=== PATIENT | female | born 1960 | race Caucasian/White ===

== ENCOUNTER 2020-07-29 12:05 | Outpatient (CLI) | payer OTHER, SELFPAY ==
--- NOTE | ~2020-07-29 | XR_ITS ---
EXAMINATION: XR chest 2V EXAM DATE: 07/29/2020 12:34 INDICATION: Mild intermittent asthma. TECHNIQUE: Frontal and lateral projections of the chest obtained and reviewed. Comparison is made to prior examination from 07/17/2016. FINDINGS: The lungs are clear. There are no pleural effusions. The cardiomediastinal silhouette is within normal limits. There is no pneumothorax suspected. The bones and soft tissues are unremarkab le. IMPRESSION: No acute cardiopulmonary findings. Reviewed, dictated and finalized at location A. KROOM CHIEF
[2020-07-29 13:06] LABS: Basophils Percent Auto 0.5 % (0.2-1.2); Eosinophils Absolute Auto 0.1 K/mm3 (0-0.3); Eosinophils Percent Auto 1.8 % (0-4.4); Hematocrit 42.5 % (37.0-47.0); Hemoglobin 14.4 g/dL (12.0-15.0); Immature Granulocyte Absolute 0.02 K/mm3 (0.00-0.031); Immature Granulocyte Percent A 0.5 % (0-0.5); Lymphocytes Absolute Auto 1.64 K/mm3 (0.9-3.2); Lymphocytes Percent Auto 42.2 % (18.3-44.2); Mean Corpuscular HGB Conc 33.9 g/dl (32-36); Mean Corpuscular Hemoglobin 30.4 pg (26-34); Mean Corpuscular Volume 89.7 fl (80-100); Mean Platelet Volume 8.8 fl (7.4-10.4); Monocytes Absolute Auto 0.4 K/mm3 (0.1-0.6); Monocytes Percent Auto 9.5 % (2.6-8.5); Neutrophils Absolute Auto 1.8 K/mm3 (1.3-6.7); Neutrophils Percent Auto 45.5 % (45.5-73.1); Platelet Count Result 220 k/mm3 (150-375); Red Blood Count 4.74 M/mm3 (4.2-5.4); Red Cell Distribution Width 12.6 % (11.5-14.5); White Blood Count 3.9 K/mm3 (4.5-10.0)
[2020-07-29 13:18] LABS: Alanine Aminotransferase 22 U/L (4-35); Albumin Level 4.6 g/dL (3.5-5.1); Alkaline Phosphatase 55 U/L (38-126); Anion Gap 7 mmol/L (8-16); Aspartate Amino Transferase 30 U/L (14-36); Bilirubin,Total 0.6 mg/dL (0.2-1.3); Blood Urea Nitrogen 15 mg/dL (7-17); Calcium 9.5 mg/dL (8.4-10.2); Carbon Dioxide 34 mmol/L (22-30); Chloride 97 mmol/L (98-107); Cholesterol 167 mg/dL (0-200); Estimated Glomerular Filt Rate > 60; Glucose 108 mg/dL (65-105); HDL Direct 53 mg/dL; Potassium 3.3 mmol/L (3.4-5.0); Sodium 138 mmol/L (137-145); Triglycerides 142 mg/dL (<150)
[2020-07-29 13:27] LABS: NT Pro B Type Natriuretic Pept 22 PG/ML (5-100)
[2020-07-29 13:29] LABS: LDL Cholesterol Direct 87 mg/dL
[2020-07-29 13:48] LABS: Thyroid Stimulating Hormone 0.608 uIU/mL (0.465-4.680)
--- NOTE | 2020-07-29 13:49 | ECG_ITS ---
Measurements Intervals [place] Rate: 59 P: 51 MO: 163 QRS: -24 QRSD: 94 T: 30 QT: 433 QTc: 430 Interpretive Statements SINUS BRADYCARDIA INCOMPLETE RIGHT BUNDLE BRANCH BLOCK NONSPECIFIC ST & T-WAVE ABNORMALITY- DIFFUSE LEADS BASELINE WANDER- I, II, III, AVR, AVL, AVF, V4 BORDERLINE ECG Electronically Signed On 07-29-2020 14:23:12 MATERIALS HANDLING COORDINATOR by Jovanni Person D.O.
[2020-08-03 13:26] LABS: Vitamin D 1,25 (OH)2 Total 57 pg/mL (18-72); Vitamin D2 1,25 (OH)2 <8 pg/mL; Vitamin D3 1,25 (OH)2 57 pg/mL
== END 2020-07-29 12:06 | disposition home or self-care (01) ==
DX: J45.20 Mild intermittent asthma, uncomplicated (principal); I10 Essential (primary) hypertension; E78.5 Hyperlipidemia, unspecified; I49.9 Cardiac arrhythmia, unspecified; R60.0 Localized edema; I45.10 Unspecified right bundle-branch block
CPT/HCPCS: 36415; 71046; 80053; 80061; 82652; 83880; 84439; 84443; 85025; 93005

== ENCOUNTER 2020-09-27 09:02 | Outpatient (CLI) | payer OTHER, SELFPAY ==
--- NOTE | ~2020-09-27 | MM_ITS ---
EXAMINATION: MM screening [facility] BI w tamara HISTORY: Screening mammogram TECHNIQUE: Craniocaudal and mediolateral oblique 3-D tomosynthesis images were obtained and synthetic 2-D images were generated. CAD analysis was submitted and interpreted. COMPARISON: 09/19/2019, 09/14/2018, 09/03/2017 BREAST PARENCHYMAL COMPOSITION: There are scattered areas of fibroglandular density. FINDINGS: There is no evidence of suspicious mass, calcification, or architectural distortion to sugg est malignancy in either breast. There has been no suspicious interval change. IMPRESSION: 1. No mammographic evidence of malignancy. 2. Recommend routine screening mammography in one year. BI-RADS Category 1: Negative Reviewed, dictated and finalized at location A. IAL WARFARE OPERATOR
== END 2020-09-27 09:03 | disposition home or self-care (01) ==
PROVIDERS: Visit Provider Obstetrics & Gynecology
DX: Z12.31 Encounter for screening mammogram for malignant neoplasm of breast (principal)
CPT/HCPCS: 77063; 77067

== ENCOUNTER 2021-03-12 20:34 | Emergency (ER) | payer OTHER, SELFPAY ==
--- NOTE | ~2021-03-12 | CT_ITS ---
EXAMINATION: CT abdomen pelvis w con DATE: 03/12/2021 22:08 INDICATION: Abdominal pain. TECHNIQUE: Computed tomography (CT) of the abdomen and pelvis was performed with 100 mL Omnipaque 350 intravenous contrast. Automated exposure control and iterative reconstruction technique were employe d. The dose-length product was 335.33 mGy-cm. COMPARISON: CT abdomen 06/11/2006 FINDINGS: The visualized portions of the lung bases demonstrate mild atelectasis. No pleural effusion . The heart size is normal. No pericardial effusion. There is a 4 mm cyst in the liver. The gallbladd er, spleen, pancreas, and adrenal glands are normal. There are cysts in the kidneys measuring up to 2 .1 cm in the left. There is diverticulosis of the colon without evidence of diverticulitis. There are no dilated loops of bowel. The appendix is normal. There are no pathologically enlarged lymph nodes. There is no free intraperitoneal fluid. There is moderate lumbar spondylosis. IMPRESSION: 1. No etiology for the patient's symptoms. Reviewed, dictated and finalized at location A.
[2021-03-12 20:31] VITALS: BP 144/114; PULSE 72; RESP 12; O2SAT 95
--- NOTE | 2021-03-12 20:36 | ECG_ITS ---
Measurements Intervals [place] Rate: 74 P: 47 CO: 158 QRS: -18 QRSD: 94 T: 32 QT: 412 QTc: 458 Interpretive Statements SINUS RHYTHM EARLY PRECORDIAL R/S TRANSITION T WAVE ABNORMALITY IN ANTERIOR LEADS- CONSIDER ISCHEMIA BASELINE ARTIFACT- II, III, AVR, AVF, V2-V6 ABNORMAL ECG Electronically Signed On 03-12-2021 21:42:19 CDT by Jovanni Person D.O.
[2021-03-12 21:08] LABS: Basophils Absolute Auto 0.1 K/mm3 (0.0-0.1); Basophils Percent Auto 0.7 % (0.2-1.2); Eosinophils Absolute Auto 0.2 K/mm3 (0-0.3); Eosinophils Percent Auto 3.4 % (0-4.4); Hematocrit 39.5 % (37.0-47.0); Hemoglobin 12.8 g/dL (12.0-15.0); Immature Granulocyte Absolute 0.03 K/mm3 (0.00-0.031); Immature Granulocyte Percent A 0.4 % (0-0.5); Lymphocytes Absolute Auto 3.02 K/mm3 (0.9-3.2); Lymphocytes Percent Auto 42.4 % (18.3-44.2); Mean Corpuscular HGB Conc 32.4 g/dl (32-36); Mean Corpuscular Volume 92.7 fl (80-100); Mean Platelet Volume 8.8 fl (7.4-10.4); Monocytes Absolute Auto 0.4 K/mm3 (0.1-0.6); Monocytes Percent Auto 5.9 % (2.6-8.5); Neutrophils Absolute Auto 3.4 K/mm3 (1.3-6.7); Neutrophils Percent Auto 47.2 % (45.5-73.1); Platelet Count Result 242 k/mm3 (150-375); Red Blood Count 4.26 M/mm3 (4.2-5.4); Red Cell Distribution Width 13.2 % (11.5-14.5); White Blood Count 7.1 K/mm3 (4.5-10.0)
[2021-03-12 21:17] LABS: Alanine Aminotransferase 19 U/L (4-35); Albumin Level 4.2 g/dL (3.5-5.1); Alkaline Phosphatase 39 U/L (38-126); Anion Gap 12 mmol/L (8-16); Aspartate Amino Transferase 33 U/L (14-36); Bilirubin,Total 0.6 mg/dL (0.2-1.3); Blood Urea Nitrogen 36 mg/dL (7-17); Calcium 10.1 mg/dL (8.4-10.2); Carbon Dioxide 26 mmol/L (22-30); Chloride 101 mmol/L (98-107); Estimated CRCL calculation 73 ml/min; Estimated Glomerular Filt Rate > 60; Glucose 166 mg/dL (65-105); Lipase 123 U/L (23-300); Potassium 3.2 mmol/L (3.4-5.0); Sodium 139 mmol/L (137-145)
[2021-03-12 21:28] LABS: Troponin I < 0.012 ng/mL (0.000-0.034)
[2021-03-12 21:30] VITALS: BP 100/64; PULSE 73; RESP 17; O2SAT 98
--- NOTE | 2021-03-12 22:28 | ED.SYNCOPE ---
HPI - Syncope General Chief Complaint: Syncope Stated Complaint: Dizzy Time Seen by Provider: 03/12/21 20:36 Source: patient Mode of arrival: EMS Limitations: no limitations History of Present Illness HPI narrative: 60-year-old with a history of hypertension, allergies, osteoarthritis here with complaints of near syncopal episode. Patient states that she had severe abdominal cramps followed by nausea. Patient states that she was about to go to the toilet had a near syncopal episode. Family called 911 and she was later brought here to the ER. Upon arrival to the ER patient states that her abdomen pain completely resolved. She denies any chest pain, shortness of breath. No history of blood in the stool or black-colored stool. Related Data Allergies Allergy/AdvReac Type Severity Reaction Status Date / Time lisinopril Allergy Unknown Dry Mouth Verified 03/12/21 20:38 methyldopa Allergy Unknown Other Verified 03/12/21 20:38 Review of Systems Review of Systems: All systems reviewed & are unremarkable except as noted in HPI and below Constitutional: Constitutional: Reports no additional constitutional complaints Eyes: Eyes: Reports no additional eye complaints ENT: Reports system reviewed and no additional complaints, except as documented Cardiovascular: Cardiovascular: Reports as per HPI Respiratory: Respiratory: Reports no additional respiratory complaints Gastrointestinal: Gastrointestinal: Reports as per HPI Musculoskeletal: Musculoskeletal: Reports no additional musculoskeletal complaints Neurologic: Reports system reviewed and no additional complaints, except as documented PMFSH Social History Social History Gender identity (if verbalized by the patient): Female Exam Narrative: Exam Narrative: GENERAL: Well-appearing, well-nourished, and in no acute distress. HEAD: Normocephalic, atraumatic. EYES: PERRLA and EOMI. ENT: Nares clear, no rhinorrhea or epistaxis. Mucous membranes moist. NECK: Supple. CHEST: Clear to auscultation. No respiratory distress. HEART: Regular rate and rhythm. No murmur heard. Normal peripheral pulses. ABDOMEN: Soft, nontender, nondistended, normal active bowel sounds. EXTREMITIES: Normal range of motion. No edema. SKIN: Warm, dry, no rash. NEURO: No focal deficits. Alert and oriented x3. PSYCH: Normal mood and affect. Course Course Emergency Course: Patient had no further episodes of chest pain or shortness of breath or abdominal pain while she was here in the ER. I have reviewed lab work, CT findings with the patient and her . She does feel comfortable going home. Vital Signs Vital signs: Vital Signs Pulse Rate 72 03/12/21 20:31 Respiratory Rate 12 03/12/21 20:31 Blood Pressure 144/114 H 03/12/21 20:31 Pulse Oximetry 95 03/12/21 20:31 Pulse Rate 73 03/12/21 21:30 Respiratory Rate 17 03/12/21 21:30 Blood Pressure 100/64 03/12/21 21:30 Pulse Oximetry 98 03/12/21 21:30 MDM - Syncope Differential Diagnosis Differential diagnosis: Likely vasovagal syncope Lab Data Result diagrams: 03/12/21 20:58 03/12/21 20:58 Labs: Lab Results 03/12/21 03/12/21 Range/Units 20:58 20:58 WBC 7.1 (4.5-10.0) K/mm3 RBC 4.26 (4.2-5.4) M/mm3 Hgb 12.8 (12.0-15.0) g/dL Hct 39.5 (37.0-47.0) % MCV 92.7 (80-100) fl MCH 30.0 (26-34) pg MCHC 32.4 (32-36) g/dl RDW 13.2 (11.5-14.5) % Plt Count 242 (150-375) k/mm3 MPV 8.8 (7.4-10.4) fl Immature Gran % (Auto) 0.4 (0-0.5) % Neut % (Auto) 47.2 (45.5-73.1) % Lymph % (Auto) 42.4 (18.3-44.2) % [place] % (Auto) 5.9 (2.6-8.5) % Eos % (Auto) 3.4 (0-4.4) % Baso % (Auto) 0.7 (0.2-1.2) % Lymph # (Auto) 3.02 (0.9-3.2) K/mm3 [place] # (Auto) 0.4 (0.1-0.6) K/mm3 Eos # (Auto) 0.2 (0-0.3) K/mm3 Baso # (Auto) 0.1 (0.0-0.1) K/mm3 Abs Immat Gran (auto) 0.03 (0.00-0.03
[2021-03-12 22:51] VITALS: BP 120/70; PULSE 81; RESP 14; O2SAT 100
== END 2021-03-12 22:51 | disposition home or self-care (01) ==
PROVIDERS: Emergency Provider Family Medicine
DX: R55 Syncope and collapse (principal); I10 Essential (primary) hypertension; M19.90 Unspecified osteoarthritis, unspecified site
CPT/HCPCS: 36415; 74177; 80053; 83690; 84484; 85025; 93005; 99284; Q9967

== ENCOUNTER 2021-09-04 10:32 | Outpatient (CLI) | payer OTHER, SELFPAY ==
--- NOTE | ~2021-09-04 | MR_ITS ---
EXAMINATION: MR brain/brain stem wo/w con DATE: 09/04/2021 11:47 INDICATION: Worsening headaches. TECHNIQUE: Magnetic resonance imaging (MRI) of the brain and brainstem was performed without and with 14 mL MultiHance intravenous contrast. Sequences included sagittal and axial T1-weighted FSE, axial diffusion-weighted FS EPI, axial T2*-weighted GRE, axial T2-weighted FLAIR Propeller, and axial T2-we ighted Propeller. Postcontrast sequences included axial, sagittal, and coronal T1-weighted FSE. Appar ent diffusion coefficient (ADC) maps were created. COMPARISON: Brain MRI 12/27/2009 FINDINGS: There is plagiocephaly with relative flattening of the right posterolateral skull. Platybas ia is noted. The cerebellar tonsils extend 9 mm inferior to foramen magnum, consistent with Chiari 1 malformation. There are scattered areas of nonspecific increased T2-weighted signal intensity in the cerebral white matter, which is within normal limits for the patient's age. There is no intracranial hemorrhage, acute infarction, or abnormal intracranial mass lesion. The ventricles are normal in size . There is mild mucosal thickening in the paranasal sinuses. There are changes of ethmoidectomies. Th e orbits are normal. The mastoid air cells are normal. IMPRESSION: 1. Chiari 1 malformation. 2. Plagiocephaly and platybasia. Reviewed, dictated and finalized at location A. OGRAPHY SPOTTER
[2021-09-04 11:20] LABS: Estimated Glomerular Filt Rate > 60
== END 2021-09-04 10:33 | disposition home or self-care (01) ==
LOC: ANHIMG 10:41
PROVIDERS: PCP Nurse Practitioner; Visit Provider Internal Medicine
DX: I77.810 Thoracic aortic ectasia (principal); G93.5 Compression of brain
CPT/HCPCS: 70553; A9577

== ENCOUNTER 2022-01-16 08:41 | Outpatient (CLI) | payer OTHER, SELFPAY ==
--- NOTE | ~2022-01-16 | MM_ITS ---
EXAMINATION: MM screening [facility] BI w tamara HISTORY: Screening TECHNIQUE: Craniocaudal and mediolateral oblique 3-D tomosynthesis images were obtained and synthetic 2-D images were generated. CAD analysis was submitted and interpreted. COMPARISON: Comparison to multiple prior studies sequentially, with oldest reviewed study dated 12/2014. BREAST PARENCHYMAL COMPOSITION: There are scattered areas of fibroglandular density. FINDINGS: There is no evidence of suspicious mass, calcification, or architectural distortion to sugg est malignancy in either breast. There has been no suspicious interval change. IMPRESSION: 1. No mammographic evidence of malignancy. 2. Recommend routine screening mammography in one year. BI-RADS Category 1: Negative Reviewed, dictated and finalized at location A.
== END 2022-01-16 08:42 | disposition home or self-care (01) ==
LOC: ANHIMG 08:46
PROVIDERS: PCP Nurse Practitioner; Visit Provider Obstetrics & Gynecology
DX: Z12.31 Encounter for screening mammogram for malignant neoplasm of breast (principal)
CPT/HCPCS: 77063; 77067

== ENCOUNTER 2022-09-13 15:03 | Emergency (ER) | payer OTHER, SELFPAY ==
[2022-09-13 15:07] VITALS: BP 187/99; PULSE 81; RESP 20; TEMP 36.8; O2SAT 99
[2022-09-13 16:54] VITALS: BP 191/92; PULSE 66; RESP 18; O2SAT 100
[2022-09-13 17:23] LABS: Basophils Percent Auto 0.6 % (0.2-1.2); Eosinophils Absolute Auto 0.1 K/mm3 (0-0.3); Hematocrit 41.7 % (37.0-47.0); Hemoglobin 13.8 g/dL (12.0-15.0); Immature Granulocyte Absolute 0.04 K/mm3 (0.00-0.031); Immature Granulocyte Percent A 0.6 % (0-0.5); Lymphocytes Absolute Auto 1.52 K/mm3 (0.9-3.2); Lymphocytes Percent Auto 23.8 % (18.3-44.2); Mean Corpuscular HGB Conc 33.1 g/dl (32-36); Mean Corpuscular Hemoglobin 31.7 pg (26-34); Mean Corpuscular Volume 95.9 fl (80-100); Mean Platelet Volume 8.7 fl (7.4-10.4); Monocytes Absolute Auto 0.6 K/mm3 (0.1-0.6); Monocytes Percent Auto 9.1 % (2.6-8.5); Neutrophils Absolute Auto 4.1 K/mm3 (1.3-6.7); Neutrophils Percent Auto 63.9 % (45.5-73.1); Platelet Count Result 301 k/mm3 (150-375); Red Blood Count 4.35 M/mm3 (4.2-5.4); White Blood Count 6.4 K/mm3 (4.5-10.0)
[2022-09-13 17:24] LABS: Alanine Aminotransferase 34 U/L (6-35); Albumin Level 4.2 g/dL (3.5-5.1); Alkaline Phosphatase 45 U/L (38-126); Anion Gap 3 mmol/L (8-16); Aspartate Amino Transferase 27 U/L (14-36); Bilirubin,Total 0.8 mg/dL (0.2-1.3); Blood Urea Nitrogen 12 mg/dL (7-17); Calcium 9.1 mg/dL (8.4-10.2); Carbon Dioxide 32 mmol/L (22-30); Chloride 97 mmol/L (98-107); Estimated CRCL calculation 83 ml/min; Estimated Glomerular Filt Rate > 60; Glucose 109 mg/dL (65-110); Lipase 115 U/L (23-300); Potassium 3.3 mmol/L (3.4-5.0); Sodium 132 mmol/L (137-145)
[2022-09-13] MEDS: ONDANSETRON INJ 4 MG/2 ML VIAL IV PUSH (17:45)
[2022-09-13] MEDS: KETOROLAC 30 MG/ML VIAL (*BKC) IV PUSH (17:45)
[2022-09-13] MEDS: SODIUM CHLORIDE 0.9% IV 1,000 ML 999 ML IV CONT (17:45)
[2022-09-13 18:50] LABS: Add Urine Microscopic? YES; Appearance Urine Clear (Clear); Bilirubin Urine Negative (Negative); Blood Urine Trace-Intact (Negative); Color Urine Light Yellow (Yellow); Glucose Urine UA Negative (Negative); Ketones Urine Negative (Negative); Leukocyte Esterase Ur Negative LEU/UL (Negative); Nitrate Urine Negative (Negative); Protein Urine Negative (Negative); Urobilinogen Urine 0.2 mg/dL (<2.0); pH Urine 7.5 (5.0-9.0)
--- NOTE | 2022-09-13 19:04 | ED.NAVMDI ---
HPI - Nausea/Vomiting/Diarrhea General Chief complaint: Nausea/Vomiting/Diarrhea Stated complaint: vomiting, dizzy Time Seen by Provider: 09/13/22 17:04 History of Present Illness HPI Narrative: 62-year-old female presents to the emergency room with a history of hypertension, Chiari malformation, chronic neck pain and sudden onset of vomiting and diarrhea that began last night. Patient states she was seen at her neurosurgeon 4 days ago for worsening neck pain. Reports ibuprofen has been alleviating her symptoms. Patient states that this morning she suddenly began experiencing nonbloody, nonbilious vomiting x4 episodes. Also reports several episodes of diarrhea. Denies any abdominal pain. Related Data Allergies Allergy/AdvReac Type Severity Reaction Status Date / Time lisinopril Allergy Unknown Dry Mouth Verified 09/13/22 16:53 methyldopa Allergy Unknown Other Verified 09/13/22 16:53 Review of Systems Review of Systems: CONSTITUTIONAL: Denies fever, chills, or sweats. EYES: Denies visual changes, redness, or discharge. ENT: Denies rhinorrhea, congestion, sore throat, or otalgia. CARDIOVASCULAR: Denies chest pain, palpitations, or edema. RESPIRATORY: Denies cough or dyspnea. GASTROINTESTINAL: Reports vomiting and diarrhea GENITOURINARY: Denies dysuria or hematuria. SKIN: Denies rash or itching. MUSCULOSKELETAL: Reports neck pain NEUROLOGIC: Denies headache PSYCHIATRIC: Denies anxiety or depression. PMFSH Social History Social History Gender identity (if verbalized by the patient): Female Exam Narrative: GENERAL: Well-appearing, well-nourished, no physical limitations, and in no acute distress. HEAD: Normocephalic, atraumatic. EYES: Conjunctivae normal, PERRLA and EOMI. NECK: Supple. CHEST: Clear to auscultation. No respiratory distress. No wheezes rales or rhonchi. HEART: Regular rate and rhythm. No murmur heard. Normal peripheral pulses. ABDOMEN: Soft, nontender, nondistended, normal active bowel sounds. : Normal external male/female exam. BACK: No midline cervical tenderness, step-offs, bony abnormality; FROM EXTREMITIES: Normal range of motion. No edema. No clubbing or cyanosis SKIN: Warm, dry, no rash. No noted wounds NEURO: No focal deficits. Alert and oriented x3. MAEW. CN's II-XI intact bilaterally, normal gait PSYCH: Cooperative. Normal mood and affect. Course Vital Signs Vital signs: Vital Signs Temperature 36.8 C 09/13/22 15:07 Pulse Rate 81 09/13/22 15:07 Respiratory Rate 20 09/13/22 15:07 Blood Pressure 187/99 H 09/13/22 15:07 Pulse Oximetry 99 09/13/22 15:07 Oxygen Delivery Room Air 09/13/22 15:07 Temperature 36.8 C 09/13/22 15:07 Pulse Rate 66 09/13/22 16:54 Respiratory Rate 18 09/13/22 16:54 Blood Pressure 191/92 H 09/13/22 16:54 Pulse Oximetry 100 09/13/22 16:54 Oxygen Delivery Room Air 09/13/22 15:07 MDM - Nausea/Vomiting/Diarrhea Lab Data 09/13/22 17:05 09/13/22 17:05 Labs: Lab Results 09/13/22 09/13/22 09/13/22 Range/Units 17:05 17:05 18:43 WBC 6.4 (4.5-10.0) K/mm3 RBC 4.35 (4.2-5.4) M/mm3 Hgb 13.8 (12.0-15.0) g/dL Hct 41.7 (37.0-47.0) % MCV 95.9 (80-100) fl MCH 31.7 (26-34) pg MCHC 33.1 (32-36) g/dl RDW 13.0 (11.5-14.5) % Plt Count 301 (150-375) k/mm3 MPV 8.7 (7.4-10.4) fl Immature Gran % (Auto) 0.6 H (0-0.5) % Neut % (Auto) 63.9 (45.5-73.1) % Lymph % (Auto) 23.8 (18.3-44.2) % [place] % (Auto) 9.1 H (2.6-8.5) % Eos % (Auto) 2.0 (0-4.4) % Baso % (Auto) 0.6 (0.2-1.2) % Lymph # (Auto) 1.52 (0.9-3.2) K/mm3 [place] # (Auto) 0.6 (0.1-0.6) K/mm3 Eos # (Auto) 0.1 (0-0.3) K/mm3 Baso # (Auto) 0.0 (0.0-0.1) K/mm3 Abs Immat Gran (auto) 0.04 H (0.00-0.031) K/mm3 Absolute Neuts (auto) 4.1 (1.3-6.7) K/mm3 Absolute Nucleated RBC 0.0 (0.0-0.012) K/m
[2022-09-13 19:10] LABS: Amorphous Sediment Urine Few; Bacteria Urine Trace /hpf; Mucus Urine Rare /lpf; WBC Urine 0-3 /hpf
[2022-09-13 19:19] VITALS: BP 134/80; PULSE 74; RESP 18; O2SAT 99
[2022-09-13 20:17] VITALS: BP 145/69; PULSE 67; RESP 18; O2SAT 98
== END 2022-09-13 20:20 | disposition home or self-care (01) ==
PROVIDERS: Emergency Medicine; Emergency Provider Nurse Practitioner Family; PCP Nurse Practitioner
DX: K52.9 Noninfective gastroenteritis and colitis, unspecified (principal); M54.2 Cervicalgia
CPT/HCPCS: 36415; 80053; 81001; 83690; 85025; 96361; 96374; 96375; 99284; J1885; J2405; J7030

== ENCOUNTER 2023-05-28 08:48 | Outpatient (CLI) | payer OTHER, SELFPAY ==
--- NOTE | ~2023-05-28 | MM_ITS ---
EXAMINATION: MM screening [place] BI w tamara HISTORY: Screening mammogram TECHNIQUE: Craniocaudal and mediolateral oblique 3-D tomosynthesis images were obtained and synthetic 2-D images were generated. CAD analysis was submitted and interpreted. COMPARISON: January 16, 2022, September 27, 2020, September 19, 2019 bilateral screening mammogram examinat ions BREAST PARENCHYMAL COMPOSITION: There are scattered areas of fibroglandular density. FINDINGS: There is no evidence of suspicious mass, calcification, or architectural distortion to sugg est malignancy in either breast. There has been no suspicious interval change. IMPRESSION: 1. No mammographic evidence of malignancy. 2. Recommend routine screening mammography in one year. BI-RADS Category 1: Negative Reviewed, dictated and finalized at location A.
== END 2023-05-28 08:49 | disposition home or self-care (01) ==
PROVIDERS: PCP Nurse Practitioner; Visit Provider Obstetrics & Gynecology
DX: Z12.31 Encounter for screening mammogram for malignant neoplasm of breast (principal)
CPT/HCPCS: 77063; 77067

== ENCOUNTER 2023-09-29 11:58 | Outpatient (CLI) | payer OTHER, SELFPAY ==
--- NOTE | ~2023-09-29 | CT_ITS ---
EXAMINATION: CT brain wo con DATE: 09/29/2023 12:14 INDICATION: Worsening headache. TECHNIQUE: Computed tomography (CT) of the head was performed without intravenous contrast. The mA wa s adjusted according to patient size. Iterative reconstruction technique was employed. The dose-lengt h product was 599.57 mGy-cm. COMPARISON: None FINDINGS: The cerebellar tonsils extend 5 mm inferior to the foramen magnum, consistent with borderli ne Chiari I malformation. There are scattered areas of low attenuation in the cerebral white matter. There is no intracranial hemorrhage, acute infarction, or abnormal intracranial mass lesion. The vent ricles are normal in size. The orbits are normal. There is mucosal thickening in the paranasal sinuse s. There are surgical changes of the paranasal sinuses. The mastoid air cells are normal. IMPRESSION: 1. Borderline Chiari I malformation. 2. Moderate nonspecific cerebral white matter disease, which likely represents chronic small vessel i schemic disease. Reviewed, dictated and finalized at location A. STMENT REPRESENTATIVE IMPRESSION: 1. Borderline Chiari I malformation. 2. Moderate nonspecific cerebral white matter disease, which likely represents chronic small vessel ischemic disease.
== END 2023-09-29 11:59 ==
LOC: MICIMG 11:59
PROVIDERS: PCP Nurse Practitioner; Visit Provider Nurse Practitioner
DX: R51.9 Headache, unspecified (principal); Q07.00 Arnold-Chiari syndrome without spina bifida or hydrocephalus; I10 Essential (primary) hypertension; R90.82 White matter disease, unspecified
CPT/HCPCS: 70450

== ENCOUNTER 2024-05-31 09:47 | Outpatient (CLI) | payer OTHER, SELFPAY ==
--- NOTE | ~2024-05-31 | MM_ITS ---
EXAMINATION: MM screening [place] BI w tamara HISTORY: Screening mammogram TECHNIQUE: Craniocaudal and mediolateral oblique 3-D tomosynthesis images were obtained and synthetic 2-D images were generated. CAD analysis was submitted and interpreted. COMPARISON: 06/09/2023, 01/07/2022, 09/27/2020, 09/19/2019 BREAST PARENCHYMAL COMPOSITION:Dense: The breasts are heterogeneously dense, which may obscure small masses. FINDINGS: No suspicious mass, calcification, or architectural distortion are identified in either stew ast to suggest malignancy. There has been no suspicious interval change. IMPRESSION: No mammographic evidence of malignancy. Recommend routine screening mammography in one year. BI-RADS Category 1: Negative Reviewed, dictated and finalized at location .
== END 2024-05-31 09:48 | disposition home or self-care (01) ==
LOC: ANHIMG 09:49
PROVIDERS: PCP Nurse Practitioner; Visit Provider Obstetrics & Gynecology
DX: Z12.31 Encounter for screening mammogram for malignant neoplasm of breast (principal)
CPT/HCPCS: 77063; 77067

== ENCOUNTER 2025-06-12 14:58 | Outpatient (CLI) | payer OTHER, SELFPAY ==
--- NOTE | ~2025-06-12 | MM_ITS ---
EXAMINATION: MM screening sandy BI w tamara HISTORY: Screening TECHNIQUE: Craniocaudal and mediolateral oblique 3-D tomosynthesis images were obtained and synthetic 2-D images were generated. CAD analysis was submitted and interpreted. COMPARISON: 01/16/2022 BREAST PARENCHYMAL COMPOSITION: The breasts are heterogeneously dense, which may obscure small masses. FINDINGS: There is no evidence of suspicious mass, calcification, or architectural distortion to suggest malignancy. There has been no suspicious interval change. IMPRESSION: 1. No mammographic evidence of malignancy. Recommend routine screening mammography in one year. BI-RADS Category 2: Benign finding(s) Reviewed, dictated and finalized at location Q. IMPRESSION: 1. No mammographic evidence of malignancy. Recommend routine screening mammogra phy in one year. BI-RADS Category 2: Benign finding(s)
--- OUTSIDE RECORDS SUMMARY | 2025-06-12 15:03 | XMS_ITS | Encounter Summary ---
Author Organization [facility] Health Address [address] [address] [facility] [address] Care Team Providers Care Steel Fabricator Name Role Phone Michela Francis MD Primary Care Provider Encounter Details Date Type Department Care Team (Late st Contact Info) Description 03/20/2019 Lab Requisition [facility] [address] [facility] [place] [id number] Juliet Marrero MD [address] [facility] [address] [place] [address] Social History Tobacco Use Types Packs/Day Years Used Date Smoking Tobacco: Never Assessed Comments Unknown Sex and Gender Information Value Date Recorded Sex Assigned at Not on file Legal Sex Female 10:34 AM CDT Gender Identity Not on file Sexual Orientation Not on file documented as of this encounter Plan of Treatment Not on file documented as of this encounter Procedures Procedure Name Priority Date/Time Associated Diagnosis Comments DERMATOPATH TECHNICAL REPORT Routine 03/17/2019 12:00 AM CDT documented in this encounter Results * DERMATOPATH TECHNICAL REPORT (03/17/2019 12:00 AM CDT) Case Report Dermatopathology Report Case: [id number] Authorizing Provider: Juliet Marrero MD Collected: 03/17/2019 12:00 AM Pathologist: Niurka Krishna MD Received: 03/20/2019 08:01 AM Specimen: Skin, left osman 9 8:06 PM CDT DERMATOPATHOLOGY LABORATORY Addendum 1 At the request of the diagnosing physician, the technical component for a Ramiro-Ep4 and P63 was performed by [facility] Dermatopathology Laboratory. 9 8:06 PM CDT DERMATOPATHOLOGY LABORATORY Addendum electronically signed by Niurka Krishna MD on 03/22/2019 at 2006 CDT Clinical History SCC. Irr non-healing. 9 8:06 PM CDT DERMATOPATHOLOGY LABORATORY Gross Description Specimen A: Received is one formalin filled container labeled with the patient's name and designated left osman. The specimen consists of a shave measuring [id number]. Jar 0. [facility] Dermatopathology [facility] performed the technical component only. 9 8:06 PM CDT DERMATOPATHOLOGY LABORATORY Embedded Images 9 8:06 PM CDT DERMATOPATHOLOGY LABORATORY DISCLAIMER An external and internal positive and negative controls are appropriate for the histochemical, immunohistochemical and immunofluorescence stain(s) in this case (if any), except where stated explicitly. The performance characteristics of the stain(s) cited in this report were developed and its performance characteristic determined by the Dermatopathology Laboratory at [facility], directed by Dr. Ese Ferrara. These tests need not be, and therefore are not, approved by the [place] Food and Drug Administration. The tests are used for clinical purposes. 9 8:06 PM T DERMATOPATHOLOGY LABORATORY at 1307 CDT Pathology/Cytolog y TISSUE SPECIMEN FROM SKIN / Unknown 03/17/2019 03/20/2019 8:01 AM CDT us Juliet Marrero MD LAB - PATHOLOGY/CYTOLOGY OR DERABLES Edited Result - Final DERMATOPATHOLOGY LABORATORY [facility] - Department of Dermatology [address] [facility] [place] [address], [facility] [phone] documented in this encounter Visit Diagnoses Not on filedocumented in this encounter Care Teams Steel Fabricator Relationship Specialty Start Date End Date Michela Francis MD [address] [place] [address] [address] [place] [id number] PCP - General 03/17/19 documented as of this encounter
--- OUTSIDE RECORDS SUMMARY | 2025-06-12 15:03 | XMS_ITS | Clinical Summary ---
Author Organization [facility] Virtual Care Address [facility] [place] [address] Phone Care Team Providers Care Spikemaking Supervisor Name Role Phone Rashida Stout MD Primary Care Provider [phone] Tatum Cash MD Unavailable [phone]- [phone] Allergies Active Allergy Reactions Criticality Noted Date Comments Lisinopril Cough Medium 07/29/2020 Methyldopa Other (See comments) Low 08/21/2020 Medications methocarbamoL (ROBAXIN) 750 mg tablet Take 1 tablet (750 mg total) by mouth 3 (three) times a day as needed 0 Active montelukast (SINGULAIR) 10 mg tablet Take 1 tablet (10 mg total) by mouth daily 0 Active albuterol HFA (PROVENTIL HFA,VENTOLIN HFA,PROAIR HFA) 90 mcg/actuation inhaler Ventolin HFA 90 mcg/actuation aerosol inhaler INHALE 2 PUFFS BY MOUTH EVERY 4 HOURS NEEDED Active fexofenadine (HUDSON) 180 mg tablet Take 1 tablet (180 mg total) by mouth nightly Active pantoprazole DR (PROTONIX) 40 mg EC tablet 1 Active fluticasone propionate (FLONASE) 50 mcg/actuation nasal spray Administer 1 spray into each nostril as needed for rhinitis Active topiramate (TOPAMAX) 25 mg tablet Take 1 tablet (25 mg total) by mouth nightly 3 Active Ubrelvy 50 mg tablet TAKE 1 TABLET BY MOUTH TWICE DAILY NEEDED FOR MIGRAINE. TAKE AT THE START OF A MIGRAINE. 3 Active losartan (COZAAR) 50 mg tablet Take 1 tablet by mouth once daily 90 tablet 3 Active albuterol HFA (PROVENTIL HFA,VENTOLIN HFA,PROAIR HFA) 90 mcg/actuation inhalerIndicatio ns:Asthma, unspecified asthma severity, unspecified whether complicated, unspecified whether persistent Inhale 2 puffs every 6 (six) hours as needed for wheezing 1 each 3 Active solifenacin (VESIcare) 5 mg tabletIndication s:Overactive bladder Take 1 tablet (5 mg total) by mouth daily 30 tablet 3 Active Active Problems Problem Noted Date Diagnosed Date Arnold-Chiari malformation 09/09/2022 Surgical History Surgery Date Site/Laterality Comments SINUS SURGERY BLADDER SURGERY OOPHORECTOMY Medical History Medical History Date Comments Asthma Hypertension Family History Medical History Relation Name Comments Diabetes Father Hypertension Father COPD Mother Hypertension Mother Lupus Mother Relation Name Status Comments Father Alive Mother Alive Social History Tobacco Use Types Packs/Day Years Used Date Smoking Tobacco: Never Smokeless Tobacco: Never Tobacco Cessation:Counseling Given: Not Answered Alcohol Use Standard Drinks/Week Comments Not Currently 0 (1 standard drink = 0.6 oz pur e alcohol) Personal Safety Answer Date Recorded Getting School Help Needed Not on file 09/04 Comments Unknown Sex and Gender Information Value Date Recorded Sex Assigned at Not on file Legal Sex Female 1:26 PM MACHINE COMPOSITOR Gender Identity Not on file Sexual Orientation Not on file Obstetrics History Last Filed Vital Signs Vital Sign Reading Time Taken Comments Blood Pressure 110/72 09/05/2023 2:03 PM MACHINE COMPOSITOR Pulse 96 09/05/2023 2:03 PM MACHINE COMPOSITOR Temperature 36.7 C (98 F) 09/05/2023 2:03 PM MACHINE COMPOSITOR Respiratory Rate 14 10/01/2021 1:02 PM MACHINE COMPOSITOR Oxygen Saturation 96% 09/05/2023 2:03 PM MACHINE COMPOSITOR Inhaled Oxygen Concentration - - Weight 69.9 kg (154 lb) 09/05/2023 2:03 PM MACHINE COMPOSITOR Height 162.6 cm (5' 4) 10/21/2022 1:39 PM MACHINE COMPOSITOR Body Mass Index 26.43 10/21/2022 1:39 PM MACHINE COMPOSITOR Plan of Treatment Health Maintenance Due Date Last Done Comments Breast Cancer Screening-Mammogram 1960 Cervical Cancer Screening 1959 Colon Cancer Screening-Colonoscopy 1959 Depression Screening 1959 Hepatitis C Screening 1959 Osteoporosis Screening-Bone Density Scan 1959 Pneumococcal vaccine 65+ (2 of 2 - PCV) 07/17/2012 07/17/2011, 07/16/2006 DTaP/Tdap/Td Vaccine (2 - Td or Tdap) 06/12/2021 06/12/2011 Fall Risk Assessment 08/27/2022 08/27/2021 Well Visit 65+ 2024 Covid-19 Vaccine (3 - 2024-2 6 season) 2025 12/09/2020, 11/07/2020 Influenza Vaccine (#1) 2025 , 06/25/2022, 07/03/2021, Additional history exists Hepatitis B Screening Completed 10/19/2003 , 03/29/2002, 01/06/2002 Zoster Vaccine Completed 09/27/2019, 04/20, 12/27/2014 Insurance [facility] HMO/PPO Address: [address] [address] [place] [address] [facility] HMO/PPO Address: [address] [address] [place] [address] [facility] HMO/PPO Address: [facility] [address] [place] [address] Care Teams Spikemaking Supervisor Relationship Specialty Start Date End Date Rashida Stout MD PCP - General Nurse Practitioner 08/27/21 Tatum Cash MD [address] [address] Fellow Neurology 04/27/22
--- OUTSIDE RECORDS SUMMARY | 2025-06-12 15:03 | XMS_ITS | Clinical Summary ---
Author Organization [facility] Address [address] [place] [address] Care Team Providers Care Precision Jig Grinder Name Role Phone Michela Francis MD Primary Care Provider Source Comments [facility],non-[facility] Affiliates and Associated Physician Practices is amultiple site organization consisting of ambulatory clinics and hospital sitesin [place], [place], [place] and [place]. This disclosure is being madepursuant to the Care Everywhere program and may not contain all information available regarding this patient. Last updated [email or web address] Social History Tobacco Use Types Packs/Day Years Used Date Smoking Tobacco: Never Assessed Comments Unknown Sex and Gender Information Value Date Recorded Sex Assigned at Not on file Legal Sex Female 10:34 AM CDT Gender Identity Not on file Sexual Orientation Not on file Plan of Treatment Health Maintenance Due Date Last Done Comments BONE DENSITY TESTING 1959 COLOGUARD (AGES 45-75) - COL ON CA SCREENING 1959 COLON MONITORING 1959 COLONOSCOPY - COLON CA SCREENING 1959 CT COLONOGRAPHY - COLON CA SCREENING 1959 Colorectal Cancer Screening 1959 FIT - COLON CA SCREENING 1959 FLEX SIG - COLON CA SCREENING 1959 LIPID TESTING 1959 MAMMOGRAM 1959 HIV SCREENING 1974 HEPATITIS C SCREENING 09/05/1977 DTAP/TDAP/TD VACCINES (1 - Tdap) 1978 PNEUMOCOCCAL VACCINE 50+ (1 of 1 - PCV) 2009 ZOSTER VACCINE (1 of 2) 2009 DEPRESSION SCREENING 09/20/2024 COVID-19 VACCINE (1 - 2023-2 5 season) 2025 INFLUENZA VACCINE (#1) 2025 Respiratory Syncytial Virus (RSV) Vaccine Pt: or over 60 yrs (1 - 1-dose 75+ series) 2034 HEPATITIS B VACCINE Aged Out No longe r eligible based on patient's age to complete this topic HIB VACCINE Aged Out No longer eligi ble based on patient's age to complete this topic HPV VACCINE Aged Out No longer eligi ble based on patient's age to complete this topic MENINGOCOCCAL (Group B) VACC INE SHARED DECISION-MAKING Aged Out No longer eligibl e based on patient's age to complete this topic MENINGOCOCCAL GROUPS A/C/Y/W VACCINE Aged Out No longer eligible b ased on patient's age to complete this topic Insurance [employer] Care Teams Precision Jig Grinder Relationship Specialty Start Date End Date Michela Francis MD [address] [place] [id number] PCP - General 03/17/19
== END 2025-06-12 14:59 | disposition home or self-care (01) ==
LOC: ANHFOHIMG 14:58
PROVIDERS: PCP Nurse Practitioner; Visit Provider Obstetrics & Gynecology
DX: Z12.31 Encounter for screening mammogram for malignant neoplasm of breast (principal)
CPT/HCPCS: 77063; 77067